=== PATIENT | male | born 1980 | race Caucasian/White ===

== ENCOUNTER 2018-06-11 06:56 | Observation (INO) | payer OTHER ==
[2018-06-11] MEDS ORDERED: NS 1,000 ML IV ONE (06:58)
[2018-06-11 07:36] LABS: PLATELET COUNT 159 10^3/uL (150-400)
[2018-06-11 07:51] LABS: INR 1.01 (0.83-1.16); PROTIME(PATIENT) 13.5 SEC (12.0-15.0)
--- NOTE | 2018-06-11 08:04 | PDANEPAE ---
ANE Past Medical History - Cardiovascular History Hx Hypertension: No Hx Arrhythmias: Yes Hx Chest Pain: No Hx Coronary Artery / Peripheral Vascular Disease: No Hx CHF / Valvular Disease: No Hx Palpitations: Yes - Pulmonary History Hx COPD: No Hx Asthma/Reactive Airway Disease: No Hx Recent Upper Respiratory Infection: No Hx Oxygen in Use at Home: No Hx Sleep Apnea: No - Endocrine History Hx Diabetes: No Hypothyroid: No Hyperthyroid: No Obesity: no - Neurological & Psychiatric Hx Hx Neurological and Psychiatric Disorders: Yes Neurological / Psychiatric History Comment: h/o seizure disorder, stable now on Keppra ANE Review of Systems Review of Systems: ANE Patient History - Allergies Allergies/Adverse Reactions: No Known Allergies Allergy (Verified 06/04/18 09:54) - Home Medications Home Medications: Triamcinolone 0.1% [Triamcinolone 0.1% Cream (*)] 1 brody TP BID 06/04/18 [Last Taken Unknown] levETIRAcetam [Keppra 500 mg (RX)] 750 mg PO BID 06/04/18 [Last Taken Unknown] - Smoking Hx Smoking Status: Never smoked ANE Labs/Vital Signs - Labs Result Diagrams: 06/11/18 07:20 06/11/18 07:20 - Vital Signs Height: 170.18 cm Weight: 68.039 kg ANE Physical Exam - Airway Neck exam: FROM Mallampati Score: Class 1 Mouth exam: normal dental/mouth exam - Pulmonary Pulmonary: no respiratory distress - Cardiovascular Cardiovascular: regular rate and rhythym - ASA Status ASA Status: II ANE Anesthesia Plan Anesthesia Plan: general endotracheal anesthesia
[2018-06-11] MEDS ORDERED: HEPARIN 10,000 UNIT/10 ML MDV (1,000 UNIT/ML) ONE (08:28)
[2018-06-11] MEDS ORDERED: LIDOCAINE 1% 300 MG/30 ML SDV ONE (08:28)
[2018-06-11] MEDS ORDERED: BUPIVACAINE 0.75% 10 ML SDV ONE (08:29)
[2018-06-11] MEDS ORDERED: ISOPROTERENOL HCL/D5W 0.2 MG/50 ML BAG IV ONE ×4 (08:29→10:45)
[2018-06-11] MEDS ORDERED: PROPOFOL/EMULSION 500 MG/50 ML BOTTLE IV ONE ×10 (08:30→11:25)
--- NOTE | 2018-06-11 08:34 | PDGENHP ---
History & Physical Chief Complaint: symptomatic svt Relevant Physical Exam: s1s2 rrr cta ao3 Cardiorespiratory Assessment: svt for eps and poss ablation
[2018-06-11] MEDS ORDERED: ePHEDrine SULFATE 25 MG/5 ML SYR ONE (09:46)
[2018-06-11] MEDS ORDERED: PHENYLEPHRINE HCL 100 MCG/ML SYR ONE ×2 (09:46)
[2018-06-11] MEDS ORDERED: ROCURONIUM 100 MG/10 ML VIAL ONE ×2 (09:47)
[2018-06-11] MEDS ORDERED: ROCURONIUM 50 MG/5 ML VIAL ONE (11:30)
[2018-06-11] MEDS ORDERED: ATROPINE SULFATE 1 MG/ML VIAL ONE (11:40)
[2018-06-11] MEDS ORDERED: SUGAMMADEX SODIUM 200 MG/2 ML VIAL IVP ONE (11:42)
[2018-06-11] MEDS ORDERED: fentaNYL 100 MCG/2 ML INJ ONE ×2 (11:47→12:08)
--- NOTE | 2018-06-11 12:38 | EPPROC ---
Electrophysiology Procedure Note: ELECTROPHYSIOLOGIC STUDY AND CATHETER MEDIATED ABLATION OF FOCAL ATRIAL TACHYCARDIA AND SLOW AV LIAT PATHWAY PROCEDURES PERFORMED: 1. EP evaluation with RA/RV/LA pace/record, with arrhythmia induction 2. EP evaluation with RA/RV pace record, insert/reposition catheter, with arrhythmia induction 3. Intracardiac catheter ablation, SVT arrhythmogenic focus 4. [id number] 3D mapping 5. Fluoroscopy INDICATION: Recurrent palpitations with exercise Catheters and anesthesia: The patient arrived in the Electrophysiology Laboratory in the fasting state. The right clavicular region, right groin, and left groin area were prepped and draped in the usual sterile manner. Anesthesiologist Dr. Lakesha Bey administered general anesthesia. Appropriate non-invasive blood pressure, pulse oximetry and end-tidal CO2 monitoring was established. All catheters were placed percutaneously using the modified Seldinger technique , and advanced into position under fluoroscopic guidance. One #7 [place] deflectable octapolar electrode catheter was advanced to the His-bundle position via the left femoral vein (2mm spacing; except the proximal ring which was 25cm from the tip used for unipolar recordings). One #7 [place] deflectable catheter with 10 pairs of electrodes was placed via the left femoral vein into the coronary sinus. Talon catheter was placed in the RA. Programmed stimulation was performed from the right atrium, left atrium ( coronary sinus) and right ventricle. Parahisian pacing demonstrated VA block Heparin was administered to keep ACT > 200 seconds. Programmed stimulation of right atrium during infusion of isoproterenol 4-8 mcg/ min induced an atrial tachycardia, CL 270-320 ms. High resolution mapping of the atrial tachycardia was done Carto 3D mapping catheter. Mobi sheath was used. A detailed 3D map of the right atrium and coronary sinus showed earliest atrial activation along the superior and lateral aspect of grady terminalis at base of RAA. Earliest atrial activation began 25 ms before the onset of the P wave with a negative deflection in the unipolar electrogram. RF applications were delivered to this site. Further RF applications were delivered in this area. Pacing at this site Slow AV liat pathway physiology was also seen at beginning of procedure, RF applications were delivered to the slow AV liat pathway area. Programmed stimulation in the baseline state and during infusion of isoproterenol 8 mcg/min post ablation was performed. Atropine 1 mg IV was also given No tachycardia could be induced. The catheters were removed. Sheaths were removed in the EP lab after applying subcutaneous purse string suture. The patient was transferred to the cardiovascular holding area in stable condition. There were no apparent complications. CONCLUSIONS: 1. Focal atrial tachycardia arising at superior aspect of grady terminalis, lateral aspect. 2. Successful ablation of focal atrial tachycardia. 3. Dual AV liat physiology. Successful slow AV liat pathway ablation. 4. No apparent complications. Patient Problems: Problems Problem Status Onset Supraventricular tachycardia Acute
--- NOTE | 2018-06-11 13:02 | POSTANESTH ---
Post Anesthetic Evaluation Cardiovascular Status: Normal, Stable Respiratory Status: Normal, Stable, Requires Airway Assist Pain Control: Adequate, Prn Tx Ordered Nausea/Vomiting Control: Adequate, Prn Tx Ordered Complications Possibly Related to Anesthesia: None Noted
[2018-06-11] MEDS: levETIRAcetam 500 MG TAB PO SCH (17:55)
[2018-06-11] MEDS: TRIAMCINOLONE 0.1% 15 GM CRTUBE TP SCH (22:11)
[2018-06-12 05:00] LABS: PLATELET COUNT 142 10^3/uL (150-400)
[2018-06-12] MEDS: TRIAMCINOLONE 0.1% 15 GM CRTUBE TP SCH (08:23)
[2018-06-12] MEDS: levETIRAcetam 500 MG TAB PO SCH (08:23)
[2018-06-12 08:42] VITALS: BP 110/71
[2018-06-12] MEDS ORDERED: ASPIRIN 81 MG CHEWABLE TAB PO SCH (09:00)
--- NOTE | 2018-06-12 10:56 | ECHO ---
[email or web address] [address] [address] Main: [phone] Fax: Transthoracic Echocardiogram Name: JORDANA POMPA MR#: [id number] Study Date: 06/12/2018 Study Time: 09:36 AM Date of : 1980 Age: 38 year(s) Height: 170.2 cm (67 in.) Weight: 68.04 kg (150 lb.) BSA: 1.79 m2 Gender: Male Examination: ELISABETH Indication: F/U EP study Image Quality: Contrast: Requested by: Michelle Mcneal BP: 110 mmHg/71 mmHg Heart Rate: Rhythm: Indication: F/U EP study Procedure Staff Supervisor Pipe Manufacture: Kel Giron RDCS Reading Physician: Cade Campos MD Requesting Provider: Conclusions: Normal global systolic LV function. EF is 78 %. Normal diastolic LV function. Trivial anterior pericardial effusion. Measurements: Chambers Valvular Assessment AV/MV Valvular Assessment TV/PV Normal Normal Normal Name Value Range Name Value Range Name Value Range Ao [place] (MM): 3.4 cm (2.2 cm-3.7 AV Vmax: 1.30 m/s (1 m/s-1.7 TR Vmax: 2.29 mm/s ( - ) cm) m/s) TR PGmax: 21 mmHg ( - ) IVSd (2D): 0.8 cm (0.6 cm-1.1 AV maxP mmHg ( - ) syst. PAP: 26 mmHg ( - ) cm) LVOT Vmax: 1.09 m/s (0.7 m/s-1.1 LVDd (2D): 5.0 cm (4.2 cm-5.9 m/s) cm) MV E Vmax: 0.95 m/s ( - ) LVDs (2D): 2.7 cm (2.1 cm-4 MV A Vmax: 0.58 m/s ( - ) cm) MV E/A: 1.64 ( - ) LVPWd (2D): 1.0 cm (0.6 cm-1 cm) LVEF (2D): 78 (>=54 %) Continued Measurements: Chambers Valvular Assessment AV/MV Valvular Assessment TV/PV Name Value Name Value Name Value LADs Lon.0 cm MV E' Septal: 0.10 m/s CVP (est.): 5 mmHg LA Area: 18.6 cm2 MV E/E' Septal: 9.90 MV E/E' Lateral: 8.50 Patient: JORDANA POMPA Study Date: 06/12/2018 Page 1 of 2 09:36 AM Findings: Left Ventricle: Normal size left ventricle. No LV hypertrophy. Normal global systolic LV function. EF is 78 %. No regional wall motion abnormality. Normal diastolic LV function. Right Ventricle: Normal size right ventricle. Left Atrium: The left atrium is normal in size. Right Atrium: The right atrium is normal in size. Mitral Valve: The mitral valve is normal in appearance and function. There is no mitral valve regurgitation. Aortic Valve: The aortic valve is tri-leaflet and functions normally. There is no aortic valve regurgitation. Tricuspid Valve: The tricuspid valve is normal in appearance and function. Pulmonic Valve: The pulmonic valve is normal in appearance and function. Aorta: The aorta is normal. Pericardium: Trivial anterior pericardial effusion. (No Signature Object) Patient: JORDANA POMPA Study Date: 06/12/2018 Page 2 of 2 09:36 AM D:_[id number]
--- NOTE | 2018-06-12 11:50 | ASDISCHSUM ---
Discharge Information Plan Status:Home with No Needs Medically Cleared to Leave:06/11/2018 Discharge Date:06/12/2018 11:30 AM CM D/C Disposition:Home, Routine, Self-Care ADT D/C Disposition:Home, Routine, Self-Care Projected Discharge Date:06/12/2018 11:30 AM Transportation at D/C: Discharge Delay Reason: Follow-Up Date:06/12/2018 11:30 AM Discharge Slot: Final Diagnosis: Placement Information Patient Contact Information Contact Name:CHARLIE Relationship: Address:[address] Work Phone: City:[place] Alternate Phone: State/Zip Code:[place] [address] Email: Financial Information Financial Class:HMO and PPO Plans Primary Plan Desc:[employer] Primary Plan Number:[id number] Secondary Plan Desc: Secondary Plan Number: Assessment Information LACE LACE Length of stay for Answers: Less than 1 day current admission Acuity / Level of Answers: No Care: Did the patient have an inpatient admission? Comorbidities - select Answers: Other Notes: Hx of seizure disorder all that apply # of Emergency department Answers: 0 visits in the last 6 months Score: 1 Date Signed: 06/12/2018 11:49 AM Electronically Signed By:Malia Albright RN Intervention Information
--- NOTE | 2018-06-12 12:06 | GDS ---
ADMITTING DIAGNOSIS: Supraventricular tachycardia. DISCHARGE DIAGNOSIS: Supraventricular tachycardia status post ablation of focal atrial tachycardia and dual AV node pathway. HOSPITAL COURSE: Mr. Lee was admitted yesterday 06/11/2018 for SVT ablation with Dr. Cade Campos. He previously experienced several symptomatic episodes of SVT following intense exertion during exercise. EP study was performed along with ablation of his focal atrial tachycardia and the slow AV liat pathway without intraprocedure complications (see EPS report). The patient reports feeling quite well this morning without specific concerns aside from some mild fatigue. He denies any lightheadedness, dizziness, palpitations, syncope, or chest discomfort. He is stable for discharge at this time. CONCLUSION: 1. Focal atrial tachycardia arising at superior aspect of grady terminalis. 2. Successful ablation of focal atrial tachycardia. 3. Dual AV liat physiology. Successful AV liat pathway ablation. 4. No apparent complications. PHYSICAL EXAMINATION: GENERAL: Patient is ambulatory without issue. He denies any discomfort or new or concerning symptoms. CARDIOVASCULAR: Irregular rate and rhythm without gallops or rubs. Telemetry overnight demonstrates normal sinus rhythm. ECG this morning demonstrates normal sinus rhythm with normal MD interval. RESPIRATORY: Clear to auscultation. EXTREMITIES: Purse-string sutures removed. Groins are clean and dry without redness, oozing, swelling, or ecchymosis Pulses 2+ bilaterally. DISCHARGE PLAN: 1. Groin precautions reviewed with patient in detail including restriction of lifting to less than 10 pounds for 10 days. 2. He will make sure to get up and walk around every 45 minutes for 45 days. 3. No submerged bathing including baths or hot tubs until his sites are fully healed. He may shower. 4. He will start aspirin 81 mg daily. 5. He will follow up in clinic as scheduled. He will contact the clinic with any new or concerning symptoms in the meantime. /[id number]/MODL MTDD
--- NOTE | 2018-06-12 12:27 | CPEKG ---
Test Reason : OPEN Blood Pressure : / mmHG Vent. Rate : 056 BPM Atrial Rate : 056 BPM P-R Int : 184 ms QRS Dur : 098 ms QT Int : 452 ms P-R-T Axes : 029 052 025 degrees QTc Int : 437 ms Sinus rhythm Left ventricular hypertrophy ST elev, probable normal early repol pattern Confirmed by Nicholas Echevarria ([id number]) on 06/12/2018 12:27:06 PM Referred By: Confirmed By:Nicholas Echevarria
--- NOTE | 2018-06-13 21:56 | CPEKG ---
Test Reason : OPEN Blood Pressure : / mmHG Vent. Rate : 082 BPM Atrial Rate : 082 BPM P-R Int : 176 ms QRS Dur : 092 ms QT Int : 382 ms P-R-T Axes : 055 059 019 degrees QTc Int : 446 ms Sinus rhythm Left ventricular hypertrophy Nonspecific ST abnormality Confirmed by Tom Yi ([id number]) on 06/13/2018 9:55:42 PM Referred By: Confirmed By:Tom Yi
--- NOTE | 2018-06-13 22:01 | CPEKG ---
Test Reason : OPEN Blood Pressure : / mmHG Vent. Rate : 076 BPM Atrial Rate : 077 BPM P-R Int : 178 ms QRS Dur : 094 ms QT Int : 406 ms P-R-T Axes : 022 022 009 degrees QTc Int : 457 ms Sinus rhythm Left ventricular hypertrophy Nonspecific ST and T wave abnormality Confirmed by Tom Yi ([id number]) on 06/13/2018 10:00:23 PM Referred By: Confirmed By:Tom Yi
== END 2018-06-12 11:30 | disposition home or self-care (01) ==
LOC: FCATH 06:56 → F2W 11:42
PROVIDERS: ADMIT Internal Medicine Cardiovascular Disease; ATTEND Internal Medicine Cardiovascular Disease
PROC: 02563ZZ Destruction of Right Atrium, Percutaneous Approach (ICD-10-PCS; principal; 2018-06-11)
DX: I47.1 Supraventricular tachycardia (principal); R56.9 Unspecified convulsions
CPT/HCPCS: 93005; 93306; 93613; 93621; 93623; 93653; 93655; C1730; C1732; G0378; C1731; C1766; J0461; J1644; J2370; J2704; J3010

== ENCOUNTER → 2018-10-02 | Outpatient (CLI) | payer OTHER | LOC: FIMAGING 15:09 | DX: I82.442 Acute embolism and thrombosis of left tibial vein (principal); I82.890 Acute embolism and thrombosis of other specified veins ==

== ENCOUNTER → 2019-02-01 | Outpatient (CLI) | payer OTHER | LOC: FIMAGING 07:21 ==